=== PATIENT | female | born 2000 | race Caucasian/White ===

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

== ENCOUNTER 2018-06-19 17:27 | Emergency (ER) | payer BC, MEDICAID ==
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
[2018-06-19] MEDS ORDERED: LORAZEPAM 0.5 MG TABLET PO ONE (17:53)
[2018-06-19] MEDS ORDERED: ACETAMINOPHEN 325 MG TAB PO ONE (17:53)
[2018-06-19] MEDS ORDERED: 0.9 % SODIUM CHLORIDE 1,000 ML BAG IV ONE (17:57)
[2018-06-19 18:24] LABS: BASO % 0.5 % (0-6); EOS % 4.4 % (0-6); GRAN % 53.7 % (47-80); HEMOGLOBIN 14.9 gm/dl (11.6-16.0); LYMPH % 35.7 % (16-45); MEAN CORPUSCULAR HEMOGLOBIN 30.8 pg (27-33); MEAN CORPUSCULAR HGB CONC 34.7 g/dl (32-36); MEAN PLATELET VOLUME 9.4 fl (7.4-10.4); MONO % 5.7 % (0-9); PLATELET COUNT 333 K/uL (130-400); RED BLOOD COUNT 4.83 M/uL (3.80-5.40); RED CELL DISTRIBUTION WIDTH 12.5 % (11.5-14.5); WHITE BLOOD COUNT W/O DIFF 7.7 K/uL (4.2-12.2)
[2018-06-19 18:34] LABS: BLOOD UREA NITROGEN 12 mg/dL (6-20); CREATININE 0.6 mg/dL (0.5-0.9)
[2018-06-19 18:37] LABS: GLUCOSE,RANDOM 94 mg/dL (74-109)
[2018-06-19 18:40] LABS: CREATINE PHOSPHOKINASE 69 U/L (26-192)
[2018-06-19 18:42] LABS: CKMB < 1.0 ng/mL (<3.77)
[2018-06-19] MEDS ORDERED: RHO(D) IMMUNE GLOBULIN 1,500 UNIT DISP.SYRIN IM ONE (19:42)
--- NOTE | 2018-06-23 13:46 | RADIOLOGY REPORT ---
EXAM: CHEST HISTORY: PATIENT HAS CHEST TIGHTNESS AND CONFUSION. TECHNIQUE: Two views of the chest are provided without comparison examinations. FINDINGS: The cardiomediastinal silhouette is within normal limits for size and contour. The alonzo appear unremarkable. There is no radiographic evidence of a focal infiltrate, pleural effusion, or pneumothorax. IMPRESSION: NO RADIOGRAPHIC EVIDENCE OF AN ACUTE INTRATHORACIC PROCESS. JOB NUMBER: [id number] MTDD
--- NOTE | 2018-06-23 14:16 | CT ANGIOGRAM REPORT ---
EXAM: CT ANGIOGRAM OF THE CHEST HISTORY: PLEURITIC CHEST PAIN. TECHNIQUE: Serial axial CTA scan of the chest was performed at 1.25 mm intervals from the thoracic inlet to the dome of the diaphragm following the intravenous administration of contrast. Additional Coronal and Sagittal maximum intensity projection reformatted images were performed. Comparison: Chest x-ray dated 06/19/18 is provided. FINDINGS: The thoracic inlet is unremarkable. The lung windows demonstrate no CT evidence of a focal infiltrate, pleural effusion or pneumothorax. The visualized heart size and contour is within normal limits. The contour, caliber and flow within the thoracic aorta within normal limits. There is no CT evidence of a filling defect within the primary and secondary pulmonary arterial tree to suggest a pulmonary embolus. There is no CT evidence of mediastinal, hilar or axillary lymphadenopathy. The chest wall is unremarkable. Axial images through the upper abdomen demonstrate the visualized liver, spleen , and adrenal glands to be unremarkable. Bone windows demonstrate no CT evidence of a fracture or dislocation of the visualized osseous structures of the chest. IMPRESSION: NO CT EVIDENCE OF A PULMONARY EMBOLUS. NO CT EVIDENCE OF AN ACUTE INTRATHORACIC PROCESS. JOB NUMBER: [id number] [facility]
== END 2018-06-19 21:23 | disposition home or self-care (01) ==
LOC: ER 17:27
DX: O26.891 Other specified pregnancy related conditions, first trimester (principal); O36.0910 Maternal care for other rhesus isoimmunization, first trimester, not applicable or unspecified; R07.1 Chest pain on breathing; R00.2 Palpitations; R06.02 Shortness of breath; R20.0 Anesthesia of skin; R53.1 Weakness; Z3A.01 Less than 8 weeks gestation of pregnancy
CPT/HCPCS: 99284 ×2; 96372; 82550; 85025; 84702; 82553; 80048; 84703; 84484; 85379; 86901; 71046; 71275; 93005; 93010; Q9967; J2790; J7030

== ENCOUNTER 2019-01-01 23:44 | Emergency (ER) | payer SELFPAY ==
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
[2019-01-02 00:28] LABS: ABSOLUTE NEUTROPHIL COUNT 5.24; BASO % 0.3 % (0-6); EOS % 4.1 % (0-6); GRAN % 57.1 % (47-80); HEMATOCRIT 42.8 % (35.0-47.0); HEMOGLOBIN 14.5 gm/dl (11.6-16.0); LYMPH % 32.6 % (16-45); MEAN CELL VOLUME 90.7 fl (81-97); MEAN CORPUSCULAR HEMOGLOBIN 30.7 pg (27-33); MEAN CORPUSCULAR HGB CONC 33.9 g/dl (32-36); MEAN PLATELET VOLUME 9.6 fl (7.4-10.4); MONO % 5.9 % (0-9); PLATELET COUNT 258 K/uL (130-400); RED BLOOD COUNT 4.72 M/uL (3.80-5.40); RED CELL DISTRIBUTION WIDTH 12.6 % (11.5-14.5); WHITE BLOOD COUNT W/O DIFF 9.2 K/uL (4.2-12.2)
[2019-01-02 00:32] LABS: URINE APPEARANCE CLEAR; URINE BILIRUBIN NEGATIVE (NEGATIVE); URINE BLOOD NEGATIVE (NEGATIVE); URINE COLOR YELLOW; URINE GLUCOSE (UA) NEGATIVE (NEGATIVE); URINE KETONE 15 mg/dL (NEGATIVE); URINE LEUKOCYTE ESTERASE NEGATIVE (NEGATIVE); URINE NITRITE NEGATIVE (NEGATIVE); URINE PROTEIN NEGATIVE (NEGATIVE); URINE UROBILINOGEN 0.2 E.U./dL (0.20 - 1.00)
[2019-01-02 00:37] LABS: HCG,QUALITATIVE URINE NEGATIVE (NEGATIVE)
[2019-01-02] MEDS ORDERED: ONDANSETRON HCL IV 4 MG/2 ML VIAL IVP ONE (00:39)
[2019-01-02 00:42] LABS: BLOOD UREA NITROGEN 15 mg/dL (6-20); CREATININE 0.5 mg/dL (0.5-0.9); EST GLOMERULAR FILTRATION RATE > 60 mL/min
[2019-01-02 00:43] LABS: TOTAL PROTEIN 7.5 g/dL (6.6-8.7)
[2019-01-02 00:45] LABS: GLUCOSE,RANDOM 99 mg/dL (74-109)
[2019-01-02 00:47] LABS: ALT/SGPT 14 U/L (<33)
[2019-01-02 00:48] LABS: ALB/GLOB RATIO 1.7 (1.1-1.8); ALBUMIN 4.7 g/dL (4.0-5.0); ALKALINE PHOSPHATASE 79 U/L (35-104); AST/SGOT 16 U/L (10.0-35.0)
--- NOTE | 2019-01-03 09:08 | CT SCAN REPORT ---
EXAM: CT SCAN OF THE ABDOMEN AND PELVIS WITHOUT CONTRAST HISTORY: RIGHT SIDED UPPER AND LOWER ABDOMINAL/FLANK PAIN. BLOATING AND TENDERNESS. TECHNIQUE: Standard CT imaging of the abdomen and pelvis was performed without contrast. Additional coronal and sagittal reformatted images were also performed. Comparison: None. FINDINGS: There is mild dependent atelectasis at both lung bases. The lung bases are otherwise clear. The liver, gallbladder, biliary tree, pancreas, spleen, adrenal glands, kidneys and ureters are normal. There is no urinary tract calculus or obstructive uropathy. The aorta is normal in caliber. There is no retroperitoneal lymphadenopathy. There is equivocal wall thickening of the terminal ileum which may simply represent peristalsis. There are no significant surrounding inflammatory changes. The remaining large and small bowel loops are normal. The appendix is visualized and is unremarkable. There is mild free fluid within the pelvis. Small functional follicles are present within both ovaries, right greater than left. An IUD is present within the endometrium. One arm is partially folded. The proximal portion of the IUD is located within the endocervical canal. The urinary bladder is normal. The anterior abdominal wall is unremarkable. There are no acute osseous abnormalities. IMPRESSION: 1. MILD FREE FLUID WITHIN THE PELVIS WHICH IS LIKELY PHYSIOLOGIC. SMALL FUNCTIONAL FOLLICLES ARE PRESENT WITHIN BOTH OVARIES. 2. MALPOSITIONED IUD WITH ONE ARM FOLDED AND THE PROXIMAL LIMB LOCATED WITHIN THE ENDOCERVICAL CANAL. 3. NO ACUTE BOWEL PATHOLOGY IDENTIFIED. [facility]: [id number] [facility]
== END 2019-01-02 02:33 | disposition home or self-care (01) ==
LOC: ER 23:44
DX: K63.89 Other specified diseases of intestine (principal); R11.0 Nausea; F17.210 Nicotine dependence, cigarettes, uncomplicated
CPT/HCPCS: 99284 ×2; 96374; 85025; 80053; 81003; 81025; 74176; J2405